=== PATIENT | male | born 1990 | race Caucasian/White ===

== ENCOUNTER 2025-06-05 12:25 | Emergency (ER) | payer BC, SELFPAY ==
--- OUTSIDE RECORDS SUMMARY | 2024-01-31 03:20 | XMS_ITS ---
Author Organization [facility] Address [address] [place] [address] Care Team Providers Care Recreation Facilities Supervisor Name Role Phone Suzy, Marie Primary Care Provider [phone] REASON FOR VISIT 4 week F/U Social History Sex Assigned At : Social History Observation Description Sex Assigned At Male Encounters Encounter Location Date Provider Diagnosis [address] [address] 01/31/2024 Marie Almonte Plan Of Treatment No Information Progress Notes * Shreyas BYRD CDOB:1990 (34 yo M)Acc No.[id number]:01/31/2024 UNLOCKED PROGRESS NOTE Patient: Shreyas KING Provider: Stephon Almonte MSN, MOBILE MECHANIC-BC, PMHNP-BC :1990 A ge:33 Y S ex:Male Date:01/31/2024 Address:[address] [place], [place] [id number] Subjective: * Chief Complaints: * 1 . 4 week F/U. * Medical History: Objective: * Vitals: Assessment: Plan: * Treatment: * * Electronic signature of Marie Almonte , [id number] on 06/05/2025 at 02:08 PM CDT Sign off status: Pending * Provider: Stephon Almonte, MSN, MOBILE MECHANIC-BC, PMHNP-BC Date: 01/31/2024 Generated for Dominique ng/Faxing/eTransmitting on: 06/05/2025 02:08 PM CDT
--- OUTSIDE RECORDS SUMMARY | 2024-02-21 08:20 | XMS_ITS ---
Author Organization [facility] Address [address] [place] [address] Care Team Providers Care Door Frame Builder Name Role Phone Marie Almonte Primary Care Provider REASON FOR VISIT R/S from 01/31/24; needs 40 min appt per MA Medications Medication SIG (Take, Route, Fr equency, Duration) Notes Start Date End Date Status Wellbutrin XL 150 MG 1 tablet in the mor ervin Orally Once a day; Duration: 30 days 09/12/2023 Ac tive Sertraline HCl 50 MG 1 tablet Orally Onc e a day; Duration: 30 days Active Social History Sex Assigned At : Social History Observation Description Sex Assigned At Male Encounters Encounter Location Date Provider Diagnosis [address] [address] 02/21/2024 Marie Almonte Plan Of Treatment No Information Progress Notes * Chelle BYRDhan CDOB:1990 (34 yo M)Acc No.[id number]:02/21/2024 UNLOCKED PROGRESS NOTE Patient: Shreyas KING Provider: Stephon Almonte, MSN, WAYS OPERATOR-BC, PMHNP-BC :1990 A ge:33 Y S ex:Male Date:02/21/2024 Address:[address] [place], [place] [id number] Subjective: * Chief Complaints: * 1 . R/S from 01/31/24; needs 40 min appt per MA. * Medical History: * Medications: T aking Sertraline HCl 50 MG Tablet 1 tablet Orally Once a day , Taking Wellbutrin XL 150 MG Tablet Extended Release 24 Hour 1 tablet in the morning Orally Once a day Objective: * Vitals: Assessment: Plan: * Treatment: * * Electronic signature of Marie Almonte , [id number] on 06/05/2025 at 02:09 PM CDT Sign off status: Pending * Provider: Stephon Almonte, MSN, WAYS OPERATOR-BC, PMHNP-BC Date: 0 02/21/2024 Generated for Dominique buenrostro/Heather/Ivette on: 0 06/05/2025 02:09 PM CDT
--- NOTE | 2025-06-05 12:31 | ED.URI ---
HPI - URI/Sore Throat General Chief Complaint: Upper Respiratory Infection Stated Complaint: cough/chest congestion Time Seen by Provider: 06/05/25 12:36 Source: patient and RN notes reviewed Mode of arrival: ambulatory Limitations: no limitations History of Present Illness HPI Narrative: 34-year-old male presents to the [facility] with complaints sinus congestion and cough for 1 week. Denies fevers. Patient does vape. States symptoms improved yesterday but still having a cough. Denies fevers, chest pain, shortness of breath. Has taken an [id number] cold and flu medication Related Data Allergies Allergy/AdvReac Type Severity Reaction Status Date / Time No Known Allergies Allergy Verified 06/05/25 12:27 Review of Systems Review of Systems: All systems reviewed & are unremarkable except as noted in HPI and below Constitutional: Constitutional: Reports no additional constitutional complaints ENT: Reports as per HPI Cardiovascular: Cardiovascular: Reports no additional cardiovascular complaints, Denies chest pain and Denies dyspnea Respiratory: Respiratory: Reports as per HPI, Denies chest congestion, Reports cough and Denies dyspnea Musculoskeletal: Musculoskeletal: Reports no additional musculoskeletal complaints Integumentary/Breasts: Skin/Breast: Reports system reviewed and no additional complaints, except as docu PMFSH Comments At the time of my signature, I reviewed and agree with the nursing past medical, surgical, social, and family history. There is no relevant family history pertinent to the patient complaint. Exam Const: General: cooperative, healthy appearing, comfortable, no acute distress, well developed, alert and well nourished Nutritional Appearance: well nourished Orientation/consciousness: patient oriented x3 Limitations: no limitations HENMT: Head: normal to inspection Ears: hearing grossly normal bilaterally, external ears normal, TM's normal bilaterally, EAC's normal, mastoids normal and no periauricular adenopathy Mouth: Yes Normal oral and palatal mucosa present, Yes lip normal, Yes tongue normal and Yes moist mucous membranes Throat: posterior oropharynx normal, uvula midline and no uvular edema Eyes: General: appearance normal, both eyes and all related structures Alignment and Position: alignment normal Neck: Neck: normal visual inspection, full ROM, no lymphadenopathy and no meningeal signs Chest: Chest palpation & inspection: normal inspection of the chest Resp: Effort & Inspection: normal respiratory effort and able to speak in complete sentences Auscultation: clear to auscultation bilaterally, no crackles, no rales, no rhonchi and no wheezes Cardio: Rate: regular rate Skin: General skin exam: normal color and no rashes or lesions noted Neuro: General: patient oriented x3, gait normal, moves all extremities and no meningeal signs Cognition (Neuro): normal cognition Speech: normal speech Gait exam (Neuro): Normal gait present Extrem: General: normal to inspection, full ROM, capillary refill normal and normal gait Psych: Appearance: grossly normal and well kempt Mental Status: mental status grossly normal Speech and movement: Normal speech and movement present and Clear speech present Affect: normal affect Attitude: cooperative Course Course Level of Care: Express Care Visit Vital Signs Vital signs: Vital Signs Temperature 98.3 F 06/05/25 12:32 Pulse Rate 76 06/05/25 12:32 Respiratory Rate 20 06/05/25 12:32 Blood Pressure 129/71 06/05/25 12:32 Pulse Oximetry 98 06/05/25 12:32 Oxygen Delivery Room Air 06/05/25 12:32 Temperature 98.3 F 06/05/25 12:32 Pulse Rate 76 06/05/25 12:32 Respiratory Rate 20 06/05/25 12:32 Blood Pressure 129/71 06/05/25 12:32 Pulse Oximetry 98 06/05/25 12:32 Oxygen Delivery Room Air 06/05/25 12:32 Reviewed MDM - URI/Sore Throat MDM Narrative Medical decision making narrative: Patient sitting in exam room. Patient is nontoxic, vitals stable. Patient with 1 week history of URI symptoms, sinusitis, bronchitis. Symptoms improved yesterday but was wanting to be evaluated today due to his cough. No acute findings noted on exam. No cough during exam. Lungs are clear, no acute findings. Patient is appropriate for outpatient treatment with close follow Discharge instructions reviewed with patient, as well as provided in writing per nursing staff. The instructions also include specific and strict return/GO TO THE ER as well as f/u information. All questions have been answered, and the patient deny any further questions with discharge and discharge plan. Some parts of this dictation were generated by voice recognition software and may contain typographical and/or grammatical inaccuracies. Differential Diagnosis Differential diagnosis: Likely upper respiratory infection, otitis media, sinusitis, viral infection, bronchitis, influenza and pharyngitis Critical Care Time Critical Care Time Critical Care Time: No Discharge Plan Discharge Clinical Impression: Viral infection Upper respiratory infection Qualifiers: URI type: unspecified viral URI Qualified Code(s): J06.9 - Acute upper respiratory infection, unspecified Patient Disposition: Home Condition: Stable Instructions: Upper Respiratory Infection (ED), Acute Bronchitis (ED) Additional Instructions: Typically viral infections last 7-10 days, can linger for couple of weeks. It is very important to treat your symptoms. Drink plenty of water, Gatorade, Pedialyte, ice pops or Jell-O. -Alternate Tylenol and Motrin per package directions for fever or pain. You can alternate every 4 hours -Antihistamine medication such as Zyrtec/Claritin/Nilda during the day can help improve symptoms. -doing daily nasal irrigations can help relieve pressure your sinuses. Things like a Neti pot -Use Flonase twice a day for 5 days then daily to help reduce the inflammation and dry up your sinuses. -You can also use Mucinex. Be sure to drink plenty of water with this medication at least 8 ounces with every dose and it is important to drink 8 to 10 glasses of water per day. Water is a natural decongestant -Eat and drink things that are easy to swallow, like tea or soup, or popsicles. -Oral rinses such as: Salt water gargles and/or may use topical anesthetic (eg. Chloraseptic spray) or lozenges to relieve dryness or throat pain). -Frequent hand washing or hand portfolio manager is one of the best ways to prevent spread of infection. -Using a vaporizer or humidifier at night will also help thin secretions and help with coughing up phlegm. -Follow up with primary care provider in 7-10 days if condition is not improving - For new or worsening symptoms go directly to the nearest ER Patient Language: Bulgarian Prescriptions: New prednisone 50 mg tablet 50 mg PO DAILY Qty: 5 0RF (DME) Aerochamber MV Spacer See Rx Instructions .Route Qty: 1 0RF Rx Instructions: As directed albuterol sulfate 90 mcg/actuation HFA aerosol inhaler 2 puff inhalation QID PRN (Reason: shortness of breath or wheezing) Qty: 6.7 0RF Follow-up/Referrals: PHYSICIAN,SUPERVISOR SEAMING [Primary Care Provider, Internal Medicine] Marco Stafford MD [Physician, Family Practice] Stand Alone Forms: Work/School Release IP Time of Disposition: 12:41
[2025-06-05 12:32] VITALS: BP 129/71; PULSE 76; RESP 20; TEMP 36.8; O2SAT 98
--- OUTSIDE RECORDS SUMMARY | 2025-06-05 14:09 | XMS_ITS | Clinical Summary ---
Author Organization [facility] Address [address] [place] [address] Care Team Providers Care Poultry Slaughterer Name Role Phone Breezy Reagan MD Primary Care Provider [phone] Allergies No known active allergies Medications naproxen (NAPROSYN) 500 mg tablet Take 1 tablet (500 mg total) by mouth 2 (two) times a day with meals PRN PAIN. AVOID OTHER NSAIDS. 20 tablet 4 Active cyclobenzaprine (FLEXERIL) 10 mg tablet Take 1 tablet (10 mg total) by mouth 2 (two) times a day as needed for muscle spasms CAUTION: MAY CAUSE DROWSINESS 15 tablet 4 Active Active Problems No known active problems Social History Tobacco Use Types Packs/Day Years Used Date Smoking Tobacco: Never Assessed Personal Safety Answer Date Recorded Getting School Help Needed Not on file 12/08 Sex and Gender Information Value Date Recorded Sex Assigned at Not on file Legal Sex Male 1:40 PM BLOOD DONOR RECRUITER Gender Identity Male 08/25/2024 1:10 PM BLOOD DONOR RECRUITER Sexual Orientation Straight 08/25/2024 1: 10 PM BLOOD DONOR RECRUITER Last Filed Vital Signs Vital Sign Reading Time Taken Comments Blood Pressure 119/72 05/20/2013 4:00 PM CDT Pulse 90 05/20/2013 4:00 PM CDT Temperature - - Respiratory Rate - - Oxygen Saturation - - Inhaled Oxygen Concentration - - Weight 85 kg (187 lb 6.3 oz) 05/20/2013 6:00 AM CDT Height 182.9 cm (6' 0.01) 05/19/2013 12:45 AM C DT Body Mass Index 25.41 05/19/2013 12:45 AM CDT Plan of Treatment Health Maintenance Due Date Last Done Comments Depression Screening 1992 Varicella Vaccines (1 of 2 - 13+ 2-dose series) 2005 Hepatitis B Screening 2010 Regular Well Visit/Exam 18-64 2010 DTaP/Tdap/Td Vaccine (2 - Td or Tdap) 05/26/2016 05/26/2006 Influenza Vaccine (#1) 2025 Hepatitis C Screening Completed 05/18/2013 HPV Vaccines Completed 12/01/2014, 08/26/2014, 03/27/2012 Pneumococcal vaccine <65 Aged Out No longer eligible based on patient's age to complete this topic Procedures Procedure Name Priority Date/Time Associated Diagnosis Comments SERUM HEPATITIS PANEL Routine 05/18/2013 9:22 PM CDT from Last 3 Months or Most Recently Relevant to Health Maintenance Results * Serum Hepatitis panel (05/18/2013 9:22 PM CDT) HBV surface ag NONREAC NONREAC HISTO RICAL RESULTS HBV core ab, IgM NONREAC NONREAC HISTORICAL RESULTS HCV ab NONREAC NONREAC HISTORICAL RESULTS Comment: EARLY ACUTE INFECTION (OCCURING DURING THE PRIOR 8-9 WEEKS) IS NOT RULED OUT BY THIS TEST. HAV ab, IgM NONREAC NONREAC HISTORIC AL RESULTS Comment: Early acute infection (within the prior 2 weeks) is not ruled out by this test. Serum 05/18/2013 9:22 PM CDT [facility] BLOOD ORDERABLES Final Resul t HISTORICAL RESULTS from Last 3 Months or Most Recently Relevant to Health Maintenance Care Teams Poultry Slaughterer Relationship Specialty Start Date End Date Breezy Reagan MD PCP - General Family Medicine 06/09/22
--- OUTSIDE RECORDS SUMMARY | 2025-06-05 14:09 | XMS_ITS | Clinical Summary ---
Author Organization [employer] [facility] Address [address] [place] [address] Care Team Providers Care Transformer Tester Name Role Phone Unavailable Primary Care Provider Unavailabl e Encounters Date Type Department Care Team Description 04/29/2025 External Device Data [facility] ABSTRACTION Provider, Abstract 03/12/2025 External Device Data [facility] ABSTRACTION Provider, Abstract from Last 3 Months Social History Tobacco Use Types Packs/Day Years Used Date Smoking Tobacco: Never Assessed Sex and Gender Information Value Date Recorded Sex Assigned at Not on file Legal Sex Male 4:02 PM CLEANING MAID Gender Identity Not on file Sexual Orientation Not on file Plan of Treatment Health Maintenance Due Date Last Done Comments DTAP/TDAP/TD VACCINES (1 - Tdap) 2011 HEPATITIS B VACCINES (1 of 3 - 19+ 3-dose series) 09/25 HPV VACCINES (1 - 3-dose SCDM series) 2019 INFLUENZA VACCINE (#1) 2025
--- OUTSIDE RECORDS SUMMARY | 2025-06-05 14:09 | XMS_ITS | Patient Health Record ---
Author Organization [facility] Address [address] [place] [address] Care Team Providers Care Automated Teller Manager Name Role Phone Marie Almonte Primary Care Provider Allergies No Known Allergies Reason For Referral No Information Medications Medication SIG (Take, Route, Fr equency, Duration) Notes Start Date End Date Status Wellbutrin XL 150 MG 1 tablet in the mor ervin Orally Once a day; Duration: 30 days 09/12/2023 Ac tive Sertraline HCl 50 MG 1 tablet Orally Onc e a day; Duration: 30 days Active Social History Tobacco Use: Social History Observation Description Date Details (start date - stop date) Current Smoker NA - NA Sex Assigned At : Social History Observation Description Sex Assigned At Male Dont use, Tobacco Use/Smoking Question Answer Notes Are you a current smoker How often do you smoke cigarettes? every day How many cigarettes a day do you smoke? 6-10 Problems Problem Type SNOMED Code ICD Code Onset Dates Problem Status W/U Status Risk Notes Problem Depression (489670089) Depression (F32.9) Active confirmed Problem Impaired concentration (6984691749) Impaired concentration (R41.840) Active confirmed Plan Of Treatment No Information Insurance Providers Payer Name Payer Address Payer Phone Subscriber Number Group Number Insured Name Patient Relationship to Insured Coverage Start Date Coverage End Date [employer] [address] [place] [address] [id number] Shreyas Byrd Self - patient is the insured 3 4 [employer] [address] [place] [address] [id number] Shreyas Byrd Self - patient is the insured 3 4
== END 2025-06-05 12:51 | disposition home or self-care (01) ==
PROVIDERS: Emergency Provider Nurse Practitioner
DX: B34.9 Viral infection, unspecified (principal); J06.9 Acute upper respiratory infection, unspecified
CPT/HCPCS: 99213; G0463